=== PATIENT | female | born 1995 | race Hispanic/Latino ===

== ENCOUNTER 2017-04-07 09:34 | Inpatient (IN) ==
[2017-04-07 11:15] LABS: UR AMPHETAMINES QUAL NONE DETECTED (NONE DETECT); UR BARBITUATES QUAL NONE DETECTED (NONE DETECT); UR BENZODIAZEPIN QUAL NONE DETECTED (NONE DETECT); UR CANNABINOIDS QUAL NONE DETECTED (NONE DETECT); UR COCAINE QUAL NONE DETECTED (NONE DETECT); UR MDMA QUAL NONE DETECTED (NONE DETECT); UR METHADONE QUAL NONE DETECTED (NONE DETECT); UR METHAMPHETAMINE QUAL NONE DETECTED (NONE DETECT); UR OPIATES QUAL NONE DETECTED (NONE DETECT); UR OXYCODONE QUAL NONE DETECTED (NONE DETECT); UR PCP QUAL NONE DETECTED (NONE DETECT); UR TCA QUAL NONE DETECTED (NONE DETECT); URINE SOURCE VOIDED
[2017-04-07 11:17] LABS: BILIRUBIN URINE NEGATIVE (NEGATIVE); BLOOD URINE NEGATIVE (NEGATIVE); CLARITY CLEAR (CLEAR); COLOR YELLOW; GLUCOSE URINE NEGATIVE (NEGATIVE); LEUKOCYTES URINE TRACE (NEGATIVE); NITRITE URINE NEGATIVE (NEGATIVE); PROTEIN URINE NEGATIVE (NEGATIVE); UROBILINOGEN URINE NORMAL
[2017-04-07 12:09] LABS: MANUAL DIFF NEEDED? NO
[2017-04-07 12:13] LABS: BASO% 0.2 % (0.0-0.8); EOS# 0.06 X1000 (0.0-0.7); EOS% 0.6 % (0.0-10.0); HEMATOCRIT 36.1 % (37.0-47.0); HEMOGLOBIN 11.8 g/dL (12.0-16.0); IMM GRAN# 0.03 X1000 (0.0-0.04); IMM GRAN% 0.3 % (0.0-0.5); LYMPH% 15.3 % (20.5-51.1); MCH 27.7 PG (27-31); MCHC 32.7 g/dL (33-37); MCV 84.7 FL (81-99); MONO# 0.38 X1000 (0.11-0.59); MONO% 3.9 % (1.7-9.3); NEUT% 79.7 % (42.2-75.2); PLT 239 X1000 (130-400); RBC 4.26 XMIL (4.2-5.4)
[2017-04-07 12:42] LABS: RPR NON-REACTIVE (NONREACTIVE)
[2017-04-07 12:57] LABS: RAPID HIV PRESUMPTIVE NEGATIVE
[2017-04-07] MEDS ORDERED: TYLENOL PO PRN (13:27)
[2017-04-07] MEDS ORDERED: PEPCID IV PRN (13:27)
[2017-04-07] MEDS ORDERED: PEPCID PO ONE (13:27)
[2017-04-07] MEDS ORDERED: PEPCID PO PRN (13:27)
[2017-04-07] MEDS ORDERED: REGLAN PO ONE (13:27)
[2017-04-07] MEDS ORDERED: LR 1,000 ML IV SCH (13:27)
[2017-04-07] MEDS ORDERED: PITOCIN 30 UNITS/LR 30 UNITS/500 ML IV.SOLN IV SCH (13:27)
[2017-04-07] MEDS ORDERED: KEFZOL 1 GM/D5W 1 GM/50 ML IVPB IV PRN (13:27)
[2017-04-07] MEDS ORDERED: STADOL IV PRN (13:27)
[2017-04-07] MEDS ORDERED: ZOFRAN IV PRN (13:27)
[2017-04-07] MEDS ORDERED: LR 500 ML IV ONE (13:27)
[2017-04-07] MEDS ORDERED: AMPICILLIN 2 GM/NS 2 GM/100 ML IVPB IV ONE (13:27)
[2017-04-07] MEDS ORDERED: SODIUM CHLORIDE 0.9% INJ SCH (13:30)
[2017-04-07] MEDS ORDERED: LR 3,000 ML ONE (13:33)
[2017-04-07] MEDS ORDERED: XYLOCAINE-MPF 1% INJ ONE (15:46)
[2017-04-07] MEDS ORDERED: MINERAL OIL PO ONE (15:46)
[2017-04-07 16:53] LABS: RUBELLA SCREEN NON IMMUNE (IMMUNE)
[2017-04-07] MEDS ORDERED: AMPICILLIN 1 GM/NS 1 GM/50 ML IVPB IV SCH (17:28)
[2017-04-07] MEDS ORDERED: PITOCIN 20 UNITS/LR 20 UNITS/1,000 ML IV.SOLN ONE (18:53)
[2017-04-07] MEDS ORDERED: HYDROXYZINE PO PRN (18:57)
[2017-04-07] MEDS ORDERED: CYTOTEC PO PRN (18:57)
[2017-04-07] MEDS ORDERED: XYLOCAINE-MPF 1% INJ PRN (18:57)
[2017-04-07] MEDS ORDERED: PERCOCET-10 PO PRN (18:57)
[2017-04-07] MEDS ORDERED: BENADRYL IV PRN (18:57)
[2017-04-07] MEDS ORDERED: HYDROXYZINE IM PRN (18:57)
[2017-04-07] MEDS ORDERED: PERI MEDS (DERMOPLAST/NUPERCAINAL/TUCKS) MISC PRN (18:57)
[2017-04-07] MEDS ORDERED: PITOCIN IM PRN (18:57)
[2017-04-07] MEDS ORDERED: PERCOCET-5 PO PRN (18:57)
[2017-04-07] MEDS ORDERED: BOOSTRIX VACCINE IM ONE (18:57)
[2017-04-07] MEDS ORDERED: PITOCIN 20 UNITS/LR 20 UNITS/1,000 ML IV.SOLN IV SCH (18:57)
[2017-04-07] MEDS ORDERED: NORCO-5 PO PRN (18:57)
[2017-04-07] MEDS ORDERED: MINERAL OIL PO PRN (18:57)
[2017-04-07] MEDS ORDERED: BENADRYL PO PRN (18:57)
[2017-04-07] MEDS ORDERED: M-M-R II VACCINE SUBQ ONE (18:57)
[2017-04-07] MEDS ORDERED: PITOCIN 30 UNITS/LR 30 UNITS/500 ML IV.SOLN IV ONE (18:57)
[2017-04-07] MEDS ORDERED: AMBIEN PO PRN (18:57)
[2017-04-07] MEDS ORDERED: PERICOLACE PO SCH (21:00)
[2017-04-07] MEDS: NORCO-10 PO PRN (22:33)
[2017-04-07] MEDS: MOTRIN PO PRN (22:33)
--- NOTE | 2017-04-08 05:58 | OPERATIVE NOTE ---
PROCEDURE DATE: 04/07/2017 DELIVERING PHYSICIAN: Dr. Ewing. TYPE OF DELIVERY: Vaginal delivery, without the vacuum forceps. FINDINGS: At 1812, an 8 pound 2 ounce male , who was delivered in an occiput-posterior presentation. Apgars were 7 at 1 minute, 9 at 5 minutes. There was a nuchal cord x1. SUMMARY: Laura Fry is a 21-year-old [facility] female, who has had no care. She states that she is 38 and 5/7 weeks gestation, but unsure of criteria. Her blood type is O positive. Rubella is nonimmune. Hepatitis B surface antigen and HIV are negative. She presented to Labor and Delivery this morning in active labor. She was initially 3 cm, and progressed to full within 5 cm. She was admitted. Her membranes were ruptured, revealing clear fluid. IV Pitocin was begun to augment her spontaneous contractions. She progressed with labor, without signs of stress or dystocia. She became complete and pushed to the point of exhaustion. Due to language difficulties, we had some problems communicating, but we did communicate the need to help with delivery. Infant was felt to be in occiput posterior presentation by my examination. The vacuum forceps was applied at a +1 station. The perineum was infiltrated with Xylocaine, and a midline episiotomy was performed. With the patient pushing and gentle traction, the infant was delivered. There was a tight nuchal cord. It was reduced. The shoulders had already been delivered, without signs of dystocia. Cord was clamped and cut. The infant was handed to the nurses for further care and evaluation. Cord blood was obtained. Placenta was spontaneously delivered and was intact. A midline episiotomy was second-degree, and it was repaired in layers using 2-0 Vicryl suture. Blood loss approximately 200 mL. Patient remained in the LDR, recovering without difficulty. cc: Harrison Ewing MD
[2017-04-08 06:33] LABS: HEMATOCRIT 30.9 % (37.0-47.0); HEMOGLOBIN 10.1 g/dL (12.0-16.0); MCH 27.7 PG (27-31); MCHC 32.7 g/dL (33-37); MCV 84.7 FL (81-99); MPV 12.2 FL (7.4-10.4); RBC 3.65 XMIL (4.2-5.4)
[2017-04-08 09:44] LABS: HIV ANTIBODY SCREEN SEE COMMENTS
[2017-04-08 09:44] LABS: HEPATITIS B SURFACE ANTIGEN SEE COMMENTS
[2017-04-08] MEDS: PRECARE PO SCH (16:23)
[2017-04-08] MEDS: MOTRIN PO PRN (19:28)
[2017-04-09] MEDS: MOTRIN PO PRN (04:53)
[2017-04-09] MEDS: NORCO-10 PO PRN (04:53)
[2017-04-09] MEDS: PRECARE PO SCH (13:24)
--- NOTE | 2017-04-13 07:51 | HISTORY AND PHYSICAL ---
ADMITTING DIAGNOSIS: Apparent term , in labor. SUMMARY: Laura Fry is a 21-year-old [place] female with no care. She states that she is 38 and 5/7 weeks gestation by unsure dating criteria. Blood type is O positive. Rubella nonimmune. Hepatitis B surface antigen and HIV are negative. She presented to Labor and Delivery at 3 cm dilated. PAST MEDICAL HISTORY: No significant past medical history could be elicited through the language line. She does not speak Nepali or Telugu, so communication was somewhat difficult. ALLERGIES: Reported as none. PHYSICAL EXAMINATION: GENERAL: A short-statured, female in active labor. VITAL SIGNS: Stable. She is afebrile. CARDIOVASCULAR: Regular rate and rhythm without murmurs, rubs, gallops. PULMONARY: Clear. BREASTS: No masses. ABDOMEN: Gravid. PELVIC: Cervix 3 cm dilated. : The is in vertex presentation . EXTREMITIES: No clubbing, edema, or cyanosis. IMPRESSION: Apparent term , in labor. No care. PLAN: She is admitted for anticipated vaginal delivery. cc: Harrison Ewing MD
== END 2017-04-09 16:00 | disposition home or self-care (01) ==
LOC: P.OPLD 09:34 → P.LD 09:43
PROVIDERS: ADMIT Obstetrics & Gynecology; ATTEND Obstetrics & Gynecology